=== PATIENT | female | born 1955 | race Caucasian/White ===

== ENCOUNTER → 2023-04-08 | Outpatient (CLI) | payer MEDICARE, OTHER, SELFPAY ==
--- NOTE | 2023-04-08 15:54 | RAD_ITS ---
INDICATION: PAIN EXAMINATION/TECHNIQUE: X-RAY - LEFT XR Shoulder 5 VIEWS COMPARISON: FINDINGS: SOFT TISSUES: No soft tissue swelling or gas. No radiopaque foreign body. BONES/JOINTS: No acute fracture or subluxation.. Normal alignment. Preservation of the joint space.. No sclerotic or destructive changes observed. RAD/Shoulder min 2 Views IMPRESSION: Negative. Electronically Signed: Emir Munoz DO at 19:50 EDT ,
--- NOTE | 2023-04-08 15:56 | RAD_ITS ---
STUDY: X-RAY - BILATERAL ACROMIOCLAVICULAR JOINTS REASON FOR EXAM: Female, 68 years old. Left shoulder pain. TECHNIQUE: 2 views of the right and left acromioclavicular joints without and with weights were obtained. COMPARISON: None. FINDINGS: Osteopenia. Mild arthrosis of both AC joints. No change in position of the AC joints without and with weights. RAD/A/C Jts Parker w or w/o Wts IMPRESSION: Osteopenia with no other abnormality. Electronically Signed: Zac Recinos, at 14:48 EDT ,
== END | disposition home or self-care (01) ==
PROVIDERS: PCP Internal Medicine; Referring Provider Internal Medicine; Visit Provider Internal Medicine
DX: M25.512 Pain in left shoulder (principal)
CPT/HCPCS: 73030; 73050

== ENCOUNTER → 2025-05-26 | Outpatient (CLI) | payer MEDICARE, OTHER, SELFPAY ==
--- NOTE | 2025-05-26 09:06 | US_ITS ---
PROCEDURE: ABD LIMITED W/ ELASTOGRAPHY REASON FOR EXAM: FATTY LIVER COMPARISON: None available. TECHNIQUE: Right upper quadrant abdominal ultrasound. Shear wave elastography for non- invasive assessment of liver tissue stiffness was performed on a [employer] RS85. FINDINGS: LIVER: Top-normal in size measuring 18 cm in length. Mild diffuse increased echogenicity of the hepatic parenchyma compatible with fatty infiltration. No discrete focal lesion is seen. Elastography: EQI Med: 4.9 kPa EQI Med Rafa: 1.3 m/s IQR/Med: 15.3 %* GALLBLADDER: Small amount of dependent echogenic sludge material. No shadowing gallstone. No gallbladder wall thickening or pericholecystic fluid. COMMON BILE DUCT: Nondilated measuring up to 0.6 cm in diameter. PANCREAS: Visualized portions are sonographically unremarkable. Visualized portions of the right kidney are unremarkable. No ascites. US/ABD Limited w/ Elastography IMPRESSION: 1. No or at most mild hepatic fibrosis. 2. Diffuse hepatic steatosis. 3. No cholelithiasis or biliary ductal dilatation. Reference Values: SRU <1.37 m/s (5.7kPa): No to mild fibrosis 1.37 m/s - 2.2 m/s: Moderate to severe fibrosis >2.2 m/s (15kPa): Significant fibrosis / cirrhosis METAVIR Score F2 or higher: 1.34 m/s (5.7kPa) F3 or higher: 1.55 m/s (7.3kPa) F4: 1.80 m/s (10kPa) * If the IQR/Med is >30%, the variance in the measurements is a large and the a ccuracy of the measurement may be in question. Reading Location: [id number]
== END | disposition home or self-care (01) ==
LOC: US 08:56
PROVIDERS: PCP Internal Medicine; Referring Provider Internal Medicine; Visit Provider Internal Medicine
DX: K76.0 Fatty (change of) liver, not elsewhere classified (principal)
CPT/HCPCS: 76705; 76981